=== PATIENT | female | born 1980 | race Caucasian/White ===

== ENCOUNTER 2024-03-02 11:33 | Day surgery (SDC) | payer MEDICARE, OTHER ==
[2024-03-02 12:07] LABS: PREGNANCY TEST URINE QUAL NEGATIVE (NEGATIVE)
[2024-03-02] MEDS ORDERED: BUPIVACAINE 0.5 % PF 150 MG/30 ML VIAL ONE (12:20)
[2024-03-02] MEDS ORDERED: ROPIVACAINE HCL 0.5% 5 MG/ML 30ML VIAL ONE (12:20)
[2024-03-02] MEDS ORDERED: LIDOCAINE 1% INJ 50 ML MDV IJ ONE (12:20)
== END 2024-03-02 14:49 | disposition home or self-care (01) ==
LOC: DS 11:33
PROVIDERS: ATTEND Surgery Vascular Surgery
DX: G35 Multiple sclerosis (principal); G61.81 Chronic inflammatory demyelinating polyneuritis; E05.90 Thyrotoxicosis, unspecified without thyrotoxic crisis or storm; Z85.9 Personal history of malignant neoplasm, unspecified; Z79.890 Hormone replacement therapy; Z79.899 Other long term (current) drug therapy; Z82.49 Family history of ischemic heart disease and other diseases of the circulatory system; Z83.3 Family history of diabetes mellitus
CPT/HCPCS: 84703-TC; A6209; J0690; J2704; J2795; J3490

== ENCOUNTER 2024-03-02 14:39 | Emergency (ER) | payer MEDICARE, OTHER ==
[~2024-03-02] VITALS: Ht 170.2 cm; Wt 61.2 kg
[2024-03-02] MEDS ORDERED: ONDANSETRON HCL/PF 4 MG/2 ML VIAL ONE (15:09)
[2024-03-02] MEDS ORDERED: MORPHINE SULFATE INJ 4 MG/ML DISP.SYRIN ONE (15:09)
[2024-03-02] MEDS: IV NS 0.9% 1,000 ML BAG IV ONE (15:21)
[2024-03-02] MEDS: MORPHINE SULFATE INJ 2 MG/ML DISP.SYRIN IV ONE (15:22)
[2024-03-02] MEDS: ONDANSETRON HCL/PF 4 MG/2 ML VIAL IVP ONE (15:22)
[2024-03-02 15:33] LABS: BASOPHILS % (AUTO) 0.2 % (0.0-2.0); EOSINOPHILS # (AUTO) 0.1 K/uL (0.0-0.7); EOSINOPHILS % (AUTO) 2.5 % (0.0-6.0); HEMATOCRIT 35 % (33-45); HEMOGLOBIN 11.3 g/dL (11.5-14.8); LYMPHOCYTES % (AUTO) 29.9 % (20.0-44.0); MEAN CORPUSCULAR HEMOGLOBIN 28 PG (26.0-33.0); MEAN CORPUSCULAR HGB CONC 33 g/dl (31.0-36.0); MEAN CORPUSCULAR VOLUME 85 fL (82-100); MONOCYTES # (AUTO) 0.3 K/uL (0.1-1.30); MONOCYTES % (AUTO) 8.6 % (2.0-12.0); NEUTROPHILS % (AUTO) 58.8 % (43.0-81.0); PLATELET COUNT (AUTO) 139 K/uL (150-450); RED BLOOD CELL COUNT(AUTO) 4.08 MIL/uL (4.0-5.2); RED CELL DISTRIBUTION WIDTH 13.8 % (11.5-15.0); WHITE BLOOD COUNT (AUTO) 3.3 K/uL (4.3-11.0)
[2024-03-02 15:44] LABS: CALCIUM, SERUM 8.5 mg/dL (8.5-10.1); CREATININE 0.8 mg/dL (0.6-1.3); POTASSIUM 3.3 mmol/L (3.5-5.1)
[2024-03-02 15:49] LABS: ALBUMIN 3.4 g/dL (3.4-5.0); BILIRUBIN,DIRECT 0.2 mg/dL (0.0-0.2); BILIRUBIN,TOTAL 0.2 mg/dL (0.2-1.0); TOTAL PROTEIN, SERUM 9.3 g/dL (6.4-8.2)
[2024-03-02] MEDS ORDERED: HYDROMORPHONE 1 MG/1 ML DISP.SYRIN ONE (15:56)
[2024-03-02] MEDS: HYDROMORPHONE 1 MG/1 ML DISP.SYRIN IV ONE (15:57)
[2024-03-02] MEDS ORDERED: HYDROCODONE/APAP 10/325MG TABLET ONE (17:45)
[2024-03-02] MEDS: HYDROCODONE/APAP 10/325MG TABLET PO ONE (17:48)
[2024-03-02 17:49] VITALS: BP 107/75; TEMP 98.4; O2SAT 99
== END 2024-03-02 17:49 | disposition home or self-care (01) ==
LOC: ER 14:43
DX: K94.29 Other complications of gastrostomy (principal); G61.81 Chronic inflammatory demyelinating polyneuritis; G89.29 Other chronic pain; R10.84 Generalized abdominal pain; Z88.1 Allergy status to other antibiotic agents; Z90.49 Acquired absence of other specified parts of digestive tract; Y84.8 Other medical procedures as the cause of abnormal reaction of the patient, or of later complication, without mention of misadventure at the time of the procedure; Y82.8 Other medical devices associated with adverse incidents
CPT/HCPCS: 99285; 74176; 96374; 96375; 96361; 85025; 80048; 83690; 80076; 36415; J2270; J2405; J7030; A6403 ×2; J1171